=== PATIENT | male | born 2000 | race Caucasian/White ===

== ENCOUNTER 2019-03-24 11:15 | Emergency (ER) | payer SELFPAY ==
[~2019-03-24] VITALS: Ht 165.1 cm; Wt 64.9 kg
[2019-03-24 11:31] VITALS: BP 114/61; PULSE 66; RESP 18; Ht 165.1 cm; Wt 64.9 kg
[2019-03-24] MEDS ORDERED: CIPR500T4 PO (14:18)
--- NOTE | 2019-03-24 14:21 | ERD ---
ER Documentation Chief Complaint Chief Complaint L testicular pain, pelvic pain X 2 days, no swelling/discoloration HPI 18-year-old otherwise healthy male presents the emergency department complaining of left testicular pain for the last 2 days. He states his pain starts in his left upper abdomen and radiates to his left testicle. He reports no hematuria, vomiting, fevers. He reports no trauma. He reports no difficulty urinating. ROS All systems reviewed and are negative except as per history of present illness. Medications Home Meds Active Scripts Ciprofloxacin Hcl* (Ciprofloxacin Hcl*) 500 Mg Tablet, 500 MG PO BID for 5 Days, TAB Prov:FAUSTINO SIMPSON 03/24/19 Allergies Allergies: Coded Allergies: No Known Allergy (Unverified , 04/21/13) PMhx/Soc Hx Alcohol Use: No Hx Substance Use: No Hx Tobacco Use: No Physical Exam Vitals Vital Signs Date Temp Pulse Resp B/P (MAP) Pulse Ox O2 O2 Flow FiO2 Time Delivery Rate 03/24/19 97.4 66 18 114/61 100 11:31 (78) Physical Exam GENERAL: The patient is well developed and appropriate for usual state of health in no apparent distress HEENT: Pupils equal, round, and reactive to light. EOMI. There is no scleral icterus. NECK: C-spine is soft and supple, there is no meningismus. There is no cervical lymphadenopathy. LUNGS: Clear to auscultation bilaterally. There are no rales, wheezes or rhonchi . HEART: Regular rate and rhythm, no murmurs, clicks, rubs or gallops. ABDOMEN: Soft, non-tender, non-distended. There are bowel sounds in all four quadrants. No rebound or guarding. : No hernias noted. Normal testicular lie. Normal cremasteric reflex. Mild tenderness over the left epididymis. EXTREMITIES: There is no peripheral cyanosis or edema. No focal swelling or erythema. NEURO: The patient moves all four extremities with 5/5 strength. Cranial nerves II - XII are intact. Normal gait. Alert and oriented SKIN: There is secondarily infected area of a nonhealing lesion of the right anterior flores area. No surrounding cellulitis. HEME/LYMPHATIC: There is no evidence of excessive bruising or lymphedema. PSYCHIATRIC: The patient does not appear anxious or depressed. Results 24 hrs Laboratory Tests Test 03/24/19 12:05 Urine Color YELLOW Urine Clarity CLOUDY Urine pH 8.0 Urine Specific [place] 1.019 Urine Ketones NEGATIVE mg/dL Urine Nitrite NEGATIVE mg/dL Urine Bilirubin NEGATIVE mg/dL Urine Urobilinogen NEGATIVE mg/dL Urine Leukocyte Esterase NEGATIVE Bam/ul Urine Microscopic RBC 1 /HPF Urine Microscopic WBC 4 /HPF Urine Amorphous Crystals FEW /HPF Urine Bacteria FEW /HPF Urine Mucus FEW /HPF Urine Hemoglobin NEGATIVE mg/dL Urine Glucose NEGATIVE mg/dL Urine Total Protein NEGATIVE mg/dl Procedures/MDM Patient was taken to a room, seen and evaluated. Comfort measures were initiated. Diagnostic tests were ordered and reviewed. RADIOLOGY: Reviewed with the radiologist REEVALUATION: Patient remained nontoxic. Diagnostic tests were appreciated and discussed with the patient MEDICAL DECISION MAKIN-year-old presents the emergency department with left testicle pain. Patient's clinical evaluation is not consistent with torsion and he is comfortable appearing. His ultrasound further demonstrates no evidence of torsion. He has an incidental finding of a varicocele and likely has mild e pididymitis based on his urine test and his clinical presentation. Will be treated with antibiotics but is otherwise nontoxic and appropriate for discharge at this time. Departure Diagnosis: Primary Impression: Pain in testicle Condition: Stable Patient Instructions: What Is Varicocele?, Epididymitis Referrals: AD LING MD (PCP) Additional Instructions: Consulte a serrano mdico para el seguimiento segn lo discutido. Lleve paramjit copia de los resultados de serrano prueba, si corresponde, a esta visita de seguimiento. Consulte a serrano mdico o regrese aqu si amanda sntomas no mejoran fernando se esperaba. En cualquier momento, regrese al departamento de emergencias por cualquier cambio o empeoramiento en amanda sntomas. FAUSTINO SIMPSON March 24, 2019 14:21
== END 2019-03-24 15:09 | disposition home or self-care (01) ==
LOC: FTE 11:15
DX: N50.812 Left testicular pain (principal)
CPT/HCPCS: 76775; 76870; 81001